=== PATIENT | female | born 2005 | race African-American/Black ===

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

== ENCOUNTER 2024-05-12 12:41 | Emergency (ER) | payer OTHER ==
[2024-05-12 14:49] LABS: Absolute Eosinophils 0.1 K/uL (0-0.5); Absolute Lymphocytes (CBC) 2.1 K/uL (0.7-4.9); Absolute Monocytes 0.3 K/uL (0.1-1.3); Absolute Neutrophil 3.4 K/uL (1.8-8.0); Basophils % 0.6 % (0-1.3); Hematocrit 34.9 % (36.0-45.0); Hemoglobin 11.5 g/dL (12.0-15.0); Lymphocytes % 35.8 % (15.3-44.8); MCH 27.5 pg (27.0-35.0); MCHC 32.8 g/dL (32.0-36.0); MCV 83.7 fL (80-100); Neutrophils % 57.6 % (41.7-73.7); Platelets 325 thou/uL (152-406); RBC Red Blood Cell Count 4.17 M/uL (3.86-4.86); Red Cell Distribution Width 15.6 % (12.1-15.2)
[2024-05-12] MEDS ORDERED: NA CHLORIDE 0.9% 1,000 ML ONE (15:11)
[2024-05-12 15:31] LABS: ALT/SGPT 46 U/L (13-56); AST/SGOT 31 U/L (15-37); Albumin 3.9 g/dL (3.4-5.0); Alkaline Phosphatase 68 U/L (45-117); Anion Gap 6.4 mEq/L (5.0-15.0); BUN Blood Urea Nitrogen 11 mg/dL (7-18); Bicarbonate 28 mEq/L (21-32); Bilirubin Total 0.4 mg/dL (0.2-1.0); Globulin 4.1 g/dL (2.3-3.5); Glomerular Filtration Rate 71 ml/min (=/>90); Glucose Level 101 mg/dL (74-106); Magnesium 2.2 mg/dL (1.6-2.4); Potassium 3.4 mEq/L (3.5-5.1); Sodium Level 136 mEq/L (136-145); Troponin High Sensitivity 3.2 pg/mL (<58.9)
[2024-05-12 15:32] LABS: Bilirubin Direct < 0.2 mg/dL (0-0.2); Bilirubin Indirect, Calculated 0.2 mg/dL (0.2-0.8)
[2024-05-12 16:42] LABS: D-Dimer 0.649 FEUug/mL (0-0.500); PT Prothrombin Time 11.5 SECONDS (9.4-12.5); Protime INR 1.03
[2024-05-12 16:50] LABS: Specific Gravity 1.007 (1.005-1.030); Sqamous Epithelial None Seen /HPF (None Seen); Urine Bacteria None Seen /HPF (<20); Urine Bilirubin NEGATIVE (Negative); Urine Blood 3+ (OVER) (Negative); Urine Clarity Extremely Turbid (Clear); Urine Color Light-Brown (Yellow); Urine Crystals Unidentified Few /HPF (None Seen); Urine Culture Reflex Order NOT NEEDED; Urine Glucose NEGATIVE (Negative); Urine Ketones NEGATIVE (Negative); Urine Microscopic Reflex YN ORDER UMIC; Urine Mucus Slight /HPF (None Seen); Urine Nitrite NEGATIVE (Negative); Urine Protein TRACE (Negative); Urine RBC >50 /HPF (None Seen); Urine Urobilinogen Normal (Normal); Urine WBC None Seen /HPF (<5); Urine pH 6.5 (5.0-7.0)
[2024-05-12 16:55] LABS: Barbiturates NEGATIVE (NEGATIVE); Benzodiazepines NEGATIVE (NEGATIVE); Cocaine NEGATIVE (NEGATIVE); METHAMPHETAM NEGATIVE (NEGATIVE); Methadone NEGATIVE (NEGATIVE); Opiates NEGATIVE (NEGATIVE); Phencyclidine NEGATIVE (NEGATIVE); THC Cannibis NEGATIVE (NEGATIVE)
[2024-05-12 16:57] LABS: Specific Gravity 1.007 (1.005-1.030)
--- NOTE | 2024-05-12 16:59 | RAD REPORT ---
EXAMINATION: ONE VIEW CHEST XR CLINICAL INDICATION: Female, 19 years old.,CHEST PAIN TECHNIQUE: Frontal chest projection is submitted. Examination is limited by patient positioning and t echnique. COMPARISON: 06/15/2019 FINDINGS: The lungs are well inflated and clear. No pneumothorax or sizable effusion. The heart is normal in s ize. IMPRESSION: No acute intrathoracic abnormalities.
--- NOTE | 2024-05-12 18:31 | RAD REPORT ---
EXAM: Chest For Pe Angio TECHNIQUE: CT angiogram of the chest was performed following intravenous contrast administration, inc luding sagittal and coronal as well as maximum intensity projection reformats. One or more of the following dose reduction techniques were used: Automated exposure control, adjustment of the mA and k V according to patient size, and iterative reconstruction. Unless otherwise specified, incidental findings do not require dedicated imaging follow-up. INDICATION: [facility] MAIN Chest pain;SOB Bed Name: 19 Y COMPARISON: Chest radiograph of earlier the same day. FINDINGS: LINES/TUBES: None. PULMONARY ARTERIES: Main pulmonary arteries are normal in caliber. No filling defects within the pul monary arteries to suggest pulmonary embolus. LUNGS AND AIRWAYS: The lungs and central airways are normal without focal abnormality. PLEURA: No effusion or pneumothorax. HEART AND MEDIASTINUM: The visualized thyroid gland is normal. No mediastinal, hilar, or axillary lym phadenopathy. Heart is unremarkable. No pericardial effusion. SOFT TISSUES AND BONES: No acute osseous abnormality. No significant soft tissue finding. UPPER ABDOMEN: Unremarkable. IMPRESSION: No evidence of acute central pulmonary emboli. No suspicious intrathoracic findings..
[2024-05-12] MEDS ORDERED: POTASSIUM 25 MEQ EFFERV TAB ONE (19:00)
--- NOTE | 2024-05-12 19:00 | ER ---
Nurse's Notes [facility] Name: Roger rOtega Age: 19 yrs Sex: Female : 2005 Arrival Date: 05/12/2024 Time: 12:41 Bed 20 Private MD: Diagnosis: Chest pain, unspecified;Shortness of breath Presentation: 05/12 13:19 Chief complaint: Patient states: was heavily drinking over the weekend for her iw birthday, she started having chest tightness on Saturday off and on, came back today, feels hard to breathe at times. Coronavirus screen: At this time, the client does not indicate any symptoms associated with coronavirus-19. Ebola Screen: No symptoms or risks identified at this time. Initial Sepsis Screen: Does the patient meet any 2 criteria? No. Patient's initial sepsis screen is negative. Does the patient have a suspected source of infection? No. Patient's initial sepsis screen is negative. Risk Assessment: Do you want to hurt yourself or someone else? Patient reports no desire to harm self or others. Onset of symptoms was May 10, 2024. 13:19 Method Of Arrival: Ambulatory iw 13:19 Acuity: RAMANA 3 iw Triage Assessment: 18:50 General: Appears in no apparent distress. comfortable, obese, Behavior is calm, qf cooperative, appropriate for age. Pain: Denies pain. 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 - Infectious Disease History:: Denies. - Social history:: Smoking status: Patient denies any tobacco usage or history of. Screenin:34 [facility] ED Fall Risk Assessment (Adult) History of falling in the last 3 months, mb9 including since admission No falls in past 3 months (0 pts) Confusion or Disorientation No (0 pts) Intoxicated or Sedated No (0 pts) Impaired Gait No (0 pts) Mobility Assist Device Used No (0 pt) Altered Elimination No (0 pt) Score/Fall Risk Level 0 - 2 = Low Risk Oriented to surroundings, Maintained a safe environment, Educated pt \T\ family on fall prevention, incl call for assistance when getting out of bed. Abuse screen: Denies threats or abuse. Nutritional screening: No deficits noted. Tuberculosis screening: No symptoms or risk factors identified. Assessment: 16:42 Reassessment: Patient appears in no apparent distress at this time. Patient and/or iw family updated on plan of care and expected duration. Pain level reassessed. Patient is alert, oriented x 3, equal unlabored respirations, skin warm/dry/pink. Vital Signs: 13:21 BP 137 / 97; Pulse 97; Resp 16; Temp 98.1; Pulse Ox 99% on R/A; Weight 106.59 kg; iw Height 5 ft. 2 in. ; Pain 7/10; 13:21 Body Mass Index 42.98 (106.59 kg, 157.48 cm) - Percentile 98.7 % iw 13:21 Pain Scale: Adult iw ED Course: 12:46 Patient arrived in ED. im 13:20 Oli Davis PA is PHCP. cp 13:20 Oli Acuna MD is Attending Physician. cp 13:20 Triage completed. iw 14:37 Initial lab(s) drawn, by me, sent to lab. Inserted saline lock: 20 gauge in left iw antecubital area, using aseptic technique. Blood collected. Flushed with 10 mL NS. 14:43 Nadya Pantoja, RN is Primary Nurse. mb9 15:05 XRAY Chest (1 view) In Process Unspecified. EDMS 16:42 Patient has correct armband on for positive identification. iw 17:34 Arm band placed on. mb9 17:34 Provided Education on: press call light if needing anything. mb9 17:58 CT Chest For PE Angio In Process Unspecified. EDMS 18:00 Sharda De Jesus RN is Primary Nurse. qf 19:06 Report given to Edward SAM. qf 19:10 No provider procedures requiring assistance completed. rg5 19:10 IV discontinued. rg5 Administered Medications: 15:31 Drug: NS 0.9% IV 1000 ml IV at 1 bolus Per protocol Route: IV; Rate: 1 bolus; Site: iw left antecubital; 17:17 Follow up: Response: No adverse reaction; IV Status: Completed infusion mb9 17:17 Not Given (Patient Refused): albuterol2.5 mg Inhalation once mb9 17:17 Not Given (Patient Refused): [id number] mg PO once mb9 17:18 Not Given (Patient Refused): [id number] mg IVP once; may give if test mb9 negative 19:02 Drug: Potassium PO Effervescent Tablet 25 mEq PO once; dissolve in 4 ounces of water or qf juice Route: PO; 19:05 Follow up: Response: No adverse reaction rg5 Medication: 17:34 VIS not applicable for this client. mb9 Outcome: 18:59 Discharge ordered by . poppy 19:33 Discharged to home ambulatory, [facility] 19:33 Condition: stable 19:33 Discharge instructions given to patient, family, Instructed on discharge instructions, follow up and referral plans. Demonstrated understanding of instructions, follow-up care, medications, Prescriptions given X 2, 19:35 Patient left the ED. rg5 Signatures: Dispatcher [employer] EDRoma Gregg, RN RN Oli Purvis PA PA cp Wilkerson, Mary Beth RN RN mb9 Shirley Jones Rommel RN RN rg5 Sharda De Jesus RN RN qf
--- NOTE | 2024-05-12 19:00 | EDPHYS ---
Physician Documentation [facility] Name: Roger Ortega Age: 19 yrs Sex: Female : 2005 Arrival Date: 05/12/2024 Time: 12:41 Bed 20 Private MD: ED Physician Oli Acuna HPI: 05/12 14:05 This 19 yrs old Black Female presents to ER via Ambulatory with complaints of Chest cp Pain, Shortness Of Breath. 14:05 The patient or guardian reports chest pain that is located primarily in the anterior cp chest wall, bilaterally. Associated signs and symptoms: Pertinent positives: shortness of breath, Pertinent negatives: abdominal pain, cough, diaphoresis, lower extremity pain, lower extremity swelling. The chest pain is described as tightness. 14:05 The pain does not radiate. Duration: The patient or guardian reports multiple episodes, cp that are intermittent, tightness returned today and has been persistent. 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 - Infectious Disease History:: Denies. - Social history:: Smoking status: Patient denies any tobacco usage or history of. ROS: 14:10 Constitutional: Negative for body aches, chills, fever, poor PO intake, cp 14:10 Eyes: Negative for injury, pain, redness, and discharge, cp 14:10 ENT: Negative for drainage from ear(s), ear pain, sore throat, difficulty swallowing, difficulty handling secretions, 14:10 Cardiovascular: Positive for chest pain, Negative for edema, palpitations, 14:10 Respiratory: Positive for shortness of breath, Negative for cough, wheezing, 14:10 Abdomen/GI: Negative for abdominal pain, nausea, vomiting, and diarrhea, 14:10 Back: Negative for radiated pain, 14:10 Neuro: Negative for altered mental status, dizziness, headache, syncope, near syncope, weakness, 14:10 All other systems are negative, Exam: 14:15 Constitutional: The patient appears in no acute distress, alert, awake, cp non-diaphoretic, non-toxic, well developed, well nourished, 14:15 Head/Face: Normocephalic, atraumatic. cp 14:15 Eyes: Periorbital structures: appear normal, Conjunctiva: normal, no exudate, no injection, Sclera: no appreciated abnormality, Lids and lashes: appear normal, bilaterally, 14:15 ENT: External ear(s): are unremarkable, Nose: is normal, Mouth: Lips: moist, Oral mucosa: pink and intact, moist, Posterior pharynx: Airway: no evidence of obstruction, patent, 14:15 Neck: ROM/movement: is normal, is supple, without pain, no range of motions limitations, 14:15 Chest/axilla: Inspection: normal, Palpation: crepitus, is not appreciated, tenderness, is not appreciated, 14:15 Cardiovascular: Rate: normal, Rhythm: regular, Edema: is not appreciated, JVD: is not appreciated, 14:15 Respiratory: the patient does not display signs of respiratory distress, Respirations: normal, no use of accessory muscles, no retractions, labored breathing, is not present, Breath sounds: are clear throughout, no decreased breath sounds, no stridor, no wheezing, 14:15 Abdomen/GI: Inspection: abdomen appears normal, Palpation: abdomen is soft and non-tender, in all quadrants, 14:15 Back: pain, is absent, ROM is normal, 14:15 Neuro: Orientation: to person, place \T\ time. Mentation: is normal, Vital Signs: 13:21 BP 137 / 97; Pulse 97; Resp 16; Temp 98.1; Pulse Ox 99% on R/A; Weight 106.59 kg; iw Height 5 ft. 2 in. ; Pain 7/10; 13:21 Body Mass Index 42.98 (106.59 kg, 157.48 cm) - Percentile 98.7 % iw 13:21 Pain Scale: Adult iw MDM: 13:20 Patient medically screened. cp 18:58 Data reviewed: vital signs, nurses notes, lab test result(s), radiologic studies, CT cp scan, plain films, and as a result, I will discharge patient. 18:58 Differential diagnosis: abnormal EKG, acute myocardial infarction, cholecystitis, cp Cholelithiasis esophagitis, gastritis, pancreatitis, pleurisy, pneumonia, pneumothorax, pulmonary embolus. I considered the following discharge prescriptions or medication management in the emergency department Medications were administered in the Emergency Department. See MAR. Counseling: I had a detailed discussion with the patient and/or guardian regarding the historical points, exam findings, and any diagnostic results supporting the discharge/admit diagnosis, lab results, radiology results, to return to the emergency department if symptoms worsen or persist or if there are any questions or concerns that arise at home. Response to treatment: the patient's symptoms have markedly improved after treatment, and as a result, I will discharge patient. Special discussion: Based on the patient's history, exam, and Dx evaluation, there is no indication for emergent intervention or inpatient Tx. It is understood by the patient/guardian that if the Sx's persist or worsen they need to return immediately for re-evaluation. 05/12 14:01 Order name: Basic Metabolic Panel; Complete Time: 15:54 cp 10 15:55 Interpretation: Normal except: K 3.4; CRE 1.14; GFR 71. cp 05/12 14:01 Order name: CBC with Diff; Complete Time: 15:05 cp 05/12 15:05 Interpretation: Normal except: HGB 11.5; HCT 34.9; RDW 15.6; MPV 7.0. cp 05/12 14:01 Order name: D-Dimer; Complete Time: 17:15 cp 05/12 14:01 Order name: LFT's; Complete Time: 15:54 cp 10 15:55 Interpretation: Normal except: GLOB 4.1; A/G 1.0. cp 05/12 14:01 Order name: Magnesium; Complete Time: 15:54 cp 05/12 14:01 Order name: PT-INR; Complete Time: 17:15 cp 05/12 14:01 Order name: Troponin HS; Complete Time: 15:54 cp 05/12 14:01 Order name: Urinalysis w/ reflexes; Complete Time: 17:15 cp 05/12 14:01 Order name: UDS; Complete Time: 17:15 cp 05/12 16:42 Order name: Test, Urine; Complete Time: 17:15 iw 05/12 14:01 Order name: XRAY Chest (1 view); Complete Time: 17:15 cp 05/12 17:20 Order name: CT Chest For PE Angio; Complete Time: 18:47 cp 05/12 14:01 Order name: Cardiac monitoring; Complete Time: 16:38 cp 1001 14:01 Order name: EKG - Nurse/Tech; Complete Time: 16:38 05/12 14:01 Order name: IV Saline Lock; Complete Time: 16:38 05/12 14:01 Order name: Labs collected and sent; Complete Time: 16:38 05/12 14:01 Order name: O2 Per Protocol; Complete Time: 16:38 05/12 14:01 Order name: O2 Sat Monitoring; Complete Time: 16:38 05/12 14:56 Order name: Labs - recollect needed: recollect blue top; Complete Time: 15:00 bd Administered Medications: 15:31 Drug: NS 0.9% IV 1000 ml IV at 1 bolus Per protocol Route: IV; Rate: 1 bolus; Site: iw left antecubital; 17:17 Follow up: Response: No adverse reaction; IV Status: Completed infusion mb9 17:17 Not Given (Patient Refused): albuterol2.5 mg Inhalation once mb9 17:17 Not Given (Patient Refused): [id number] mg PO once mb9 17:18 Not Given (Patient Refused): [id number] mg IVP once; may give if test mb9 negative 19:02 Drug: Potassium PO Effervescent Tablet 25 mEq PO once; dissolve in 4 ounces of water or qf juice Route: PO; 19:05 Follow up: Response: No adverse reaction rg5 Disposition Summary: 05/12/24 18:59 Discharge Ordered Notes: Location: Home cp Problem: new cp Symptoms: have improved cp Condition: Stable cp Diagnosis - Chest pain, unspecified cp - Shortness of breath cp Followup: cp - With: Private Physician - When: 2 - 3 days - Reason: Worsening of condition Discharge Instructions: - Discharge Summary Sheet cp - Nonspecific Chest Pain, Adult cp - Shortness of Breath, Adult cp Forms: - Medication Reconciliation Form cp - Antibiotic Education cp - Prescription Opioid Use cp - Patient Portal Instructions cp - Leadership Thank You Letter cp Prescriptions: - albuterol sulfate 90 mcg/actuation Inhalation HFA Aerosol Inhaler - inhale 1 puff INHALATION route every 4 to 6 hours as needed for shortness of cp breath; administer via ventilator; 1 unit; Refills: 0, Product Selection Permitted - Anaprox DS 550 mg Oral Tablet - take 1 tablet ORAL route every 12 hours As needed; 20 tablet; Refills: 0, cp Product Selection Permitted Signatures: Dispatcher [employer] EDMS Karlene Owens Irene, RN RN Oli Purvis PA PA cp Wilkerson, Mary Beth RN RN mb9 Neal, Quoterris S, RN RN Edward Pack RN rg5 Corrections: (The following items were deleted from the chart) 16:55 14:02 TEST, SERUM+[id number].LAB.BRZ ordered. EDMS EDMS
[2024-05-12 22:01] VITALS: BP 137/97; TEMP 98.1; O2SAT 99
== END 2024-05-12 19:35 | disposition home or self-care (01) ==
LOC: ER 12:41
DX: R07.89 Other chest pain (principal); R06.02 Shortness of breath
CPT/HCPCS: 96361; 85025; 81001; 80048; 36415; 83735; 81025; 85610; 85379; 80076; 84484; 80307; 71275; 71045; 96360; 99284; Q9967; J7030